=== PATIENT | female | born 1975 | race Caucasian/White ===

== ENCOUNTER 2024-10-26 15:43 | Inpatient (IN) | payer MEDICAID, OTHER ==
[~2024-10-26] VITALS: Ht 167.6 cm; Wt 72.9 kg
--- NOTE | 2024-10-26 15:53 | ECG ---
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
--- NOTE | 2024-10-26 15:54 | ED.PDOC ---
GI ASSESSMENT HPI Comments 49Y F with PMHx liver cirrhosis and esophageal varices presents to ED via EMS for chief complaint hematemesis that began this morning. Pt states she has been feeling unwell for 3 days and began to experience hematemesis today. Per pt, she has been eating lots of candy and thought her emesis this morning was chocolate. Pt says she may have had a fever as well. Pt presents to ED hypotensive with BP 75/49. HR is 85. Chief Complaint: Nausea/Vomiting Time Seen by MD: 15:45 Reviewed Notes: Nurses Notes, Transit Planning Director Notes, Medications, Allergies Allergies: Coded Allergies: NO KNOWN ALLERGIES (Unverified , 10/26/24) Information Source: Patient, Emergency Med Personnel Mode of Arrival: EMS Brought in by: EMS Timing: Days Duration: Intermittent Prehospital treatment: None Quality: None Vomitus: Bloody Stool: Normal Severity: Moderate Recent: None Recent Hx of: Varicies, Liver Disease Pain Location: Epigastric, None Modifying Factors: Nothing Associated sign and symptoms: Hematemesis Past Medical History PAST MEDICAL HISTORY: Liver (cirrhosis) Past Medical History (Other): Esophageal varices Surgical History: Denies all surgeries IMPROVEMENT DIRECTOR History: No Pertinent IMPROVEMENT DIRECTOR History Family History Family History: Unknown Social History Smoker: Non-Smoker Alcohol: Denies ETOH Use Drugs: Denies Drug Use Lives In: Home Constitutional: reports: fever, weakness; denies: chills, diaphoresis, fatigue, malaise, sweats, others EENTM: denies: blurred vision, double vision, ear bleeding, ear discharge, ear drainage, ear pain, ear ringing, eye pain, eye redness, hearing loss, mouth pain, mouth swelling, nasal discharge, nose bleeding, nose congestion, nose pain, photophobia, tearing, throat pain, throat swelling, voice changes, others Respiratory: denies: cough, hemoptysis, orthopnea, SOB at rest, shortness of breath, SOB with excertion, stridor, wheezing, others Cardiovascular: denies: chest pain, dizzy spells, diaphoresis, Dyspnea on exertion, edema, irregular heart beat, left arm pain, lightheadedness, palpitations, PND, syncope, others Gastrointestinal: reports: hematemesis; denies: abdomen distended, abdominal pain, blood streaked bowels, constipated, diarrhea, dysphagia, difficulty swallowing, melena, nausea, poor appetite, poor fluid intake, rectal bleeding, rectal pain, vomiting, others Genitourinary: denies: abnormal vagina bleeding, burning, dyspareunia, dysuria, flank pain, frequency, hematuria, incontinence, pain, , vagina discharge, urgency, others Neurological: denies: dizziness, fainting, headache, left sided numbness, left sided weakness, numbness, paresthesia, pre-existing deficit, right sided numbness, right sided weakness, seizure, speech problems, tingling, tremors, weakness, others Musculoskeletal: denies: back pain, gout, joint pain, joint swelling, muscle pain, muscle stiffness, neck pain, others Integumetry: denies: bruises, change in color, change in hair/nails, dryness, laceration, lesions, lumps, rash, wounds, others Allergic/Immunocompromised: denies: Difficulty Healing, Frequent Infections, Hives, Itching, others Hematologic/Lymphatic: denies: anemia, blood clots, easy bleeding, easy bruising, swollen glands, others Endocrine: denies: excessive hunger, excessive sweating, excessive thirst, excessive urination, flushing, intolerance to cold, intolerance to heat, une xplained weight gain, unexplained weight loss, others Psychiatric: denies: anxiety, bipolar disorder, depression, hopeless, panic disorder, schizophrenia, sleepless, suicidal, others All Other Systems: Reviewed and Negative Physical Exam General Appearance: Moderate Distress (Patient appears to be in moderate distress due to her hematemesis concerns. Patient appears to be in poor overall health.), Normal HEENT: Normal ENT Inspection, Pharynx Normal, TMs Normal Neck: Full Range of Motion, Non-Tender, Normal, Normal Inspection Respiratory: Chest Non-Tender, Lungs Clear, No Accessory Muscle Use, No Respiratory Distress, Normal Breath Sounds Cardiovascular: No Edema, No JVD, No Murmur, No Gallop, Normal Peripheral Pulses, Regular Rate/Rhythm Breast Exam: Deferred Gastrointestinal: Soft, Tenderness (Mild diffuse epigastric and right upper quadrant tenderness to palpation.) Genitalia: Deferred Pelvic: Deferred Rectal: Deferred Extremities: No calf tenderness, Normal capillary refill, Non-tender, No pedal edema Musculoskeletal : Apperance: Normal Neurologic: Alert, No Motor Deficits, Normal Affect, Normal Mood, No Sensory Deficits Cerebellar Function: Normal Reflexes: Normal Skin: Dry, Normal Color, Warm Lymphatic: No Adenopathy Was a procedure done? Was a procedure done?: No GI differential Dx Differential Diagnosis: Esophageal rupture, Esophagitis, Electrolyte Imbalance, Esophageal Varicies, Other (GI bleed, pancreatitis, electrolyte abnormality, sepsis) X-Ray, Labs, Meds, VS Vital Signs Date Time Temp Pulse Resp B/P (MAP) Pulse Ox O2 Delivery O2 Flow Rate FiO2 10/26/24 17:40 95/54 (68) 10/26/24 17:00 85 15 91/50 (64) 100 10/26/24 16:45 76 15 76/39 (51) 100 10/26/24 16:41 73 15 99 Nasal Cannula* 2 28 10/26/24 16:30 87 15 81/43 (56) 100 10/26/24 16:17 97.5 83 15 78/42 (54) 100 97.5 10/26/24 16:00 82 10/26/24 15:51 89 10/26/24 15:45 98.0 85 20 75/49 (58) 100 Lab Test 10/26/24 18:34 10/26/24 16:11 Range/Units Lactic Acid Level 2.4 *H 4.4 *H 0.4-2.0 mmol/L Troponin I High Sensitivity 13 < 3 L </=34 ng/L White Blood Count 10.5 4.4-10.8 10^3/uL Red Blood Count 3.13 L 4.0-5.20 10^6/uL Hemoglobin 8.7 L 12.2-16.2 g/dL Hematocrit 26.9 L 36.0-46.0 % Mean Corpuscular Volume 85.9 80.0-100.0 fL Mean Corpuscular Hemoglobin 27.9 L 28.0-32.0 pg Mean Corpuscular Hemoglobin Concent 32.4 32.0-36.0 g/dL Red Cell Distribution Width 17.0 H 11.8-14.3 % Platelet Count 89 L 140-450 10^3/uL Mean Platelet Volume 7.2 6.9-10.8 fL Neutrophils (%) (Auto) 61.9 37.0-80.0 % Lymphocytes (%) (Auto) 31.1 10.0-50.0 % Monocytes (%) (Auto) 5.5 0.0-12.0 % Eosinophils (%) (Auto) 1.1 0.0-7.0 % Basophils (%) (Auto) 0.4 0.0-2.0 % Neutrophils # (Auto) 6.5 1.6-8.6 10 ^3/uL Lymphocytes # (Auto) 3.3 0.4-5.4 10 ^3/uL Monocytes # (Auto) 0.6 0-1.3 10 ^3/uL Eosinophils # (Auto) 0.1 0-0.8 10 ^3/uL Basophils # (Auto) 0 0-0.2 10 ^3/uL Nucleated Red Blood Cells 0.1 % Prothrombin Time 13.9 H 9.3-11.8 sec Prothrombin Time INR 1.34 H 0.9-1.15 Activated Partial Thromboplast Time 26.3 24.5-34.5 SEC D-Dimer, Quantitative 0.22 0.0-0.49 mg/L FEU Sodium Level 145 136-145 mmol/L Potassium Level 3.2 L 3.5-5.1 mmol/L Chloride Level 113 H 98-107 mmol/L Carbon Dioxide Level 18 L 20-31 mmol/L Anion Gap 14 5-15 Blood Urea Nitrogen 27 H 9-23 mg/dL Creatinine 0.83 0.550-1.02 mg/dL Glomerular Filtration Rate Calc 87 >90 mL/min BUN/Creatinine Ratio 32.5 H 10.0-20.0 Serum Glucose 139 H 74-106 mg/dL Calcium Level 9.2 8.7-10.4 mg/dL Total Bilirubin 1.7 H 0.2-1.0 mg/dL Aspartate Amino Transferase (AST) 22 13-40 U/L Alanine Aminotransferase (ALT) 16 7-40 U/L Alkaline Phosphatase 68 46-116 U/L B-Type Natriuretic Peptide 2.59 0-100 pg/mL Total Protein 5.3 L 5.7-8.2 g/dL Albumin 3.2 3.2-4.8 g/dL Current Medications Medications (Trade) Dose Ordered Sig/Chandan Route Start Time Stop Time Status Last Admin Sodium Chloride 1,000 ml @ 1,000 mls/hr Q1H ONCE IV 10/26/24 16:00 10/26/24 16:59 DC 10/26/24 16:00 Albumin Human 100 ml @ 100 mls/hr ONCE ONCE IV 10/26/24 16:30 10/26/24 17:29 DC 10/26/24 16:38 Ondansetron HCl (Zofran) 4 mg ONCE ONCE IV 10/26/24 16:30 10/26/24 16:31 DC 10/26/24 16:38 [place] [id number] Ph: [phone] DIAGNOSTIC IMAGING Diagnostic Imaging Report : [id number] Signed PATIENT: SHIRLENE LOBATOCCT: [id number] UNIT: [id number] : 1975 LOC: ER ROOM / BED: / AGE / SEX: 49 / F ADM STATUS: REG ER SERVICE 26 ORDERING PHYSICIAN: ALEYDA GARCIA PAC PROCEDURE(s): CAPIV - CT CHEST/AB/PL W CON- IV ONLY REASON: HEMATEMESIS; HX ESOPHAGEAL VARICES ORDER NUMBER(s): [id number], ACCESSION NUMBER(s): [id number] Exam: CT CT CHEST/AB/PL W CON- IV ONLY History: HEMATEMESIS; HX ESOPHAGEAL VARICES Comparison Study: None available at time of dictation. Contrast: Type of contrast: Omnipaque 300 Contrast injected: 100 mL Contrast wasted: 0 TECHNIQUE: A digital follow up clerk image was obtained. During the uneventful, intravenous administration of contrast material, multislice data acquisition was obtained through the abdomen and pelvis. The data set was subsequently reconstructed into axial images. Images were reviewed on a work station using a combination of axial and multiplanar using a variety of window levels and settings. Radiation Dose Information: CT Dose: CTDI volume is 12.23 mGy. Dose-length product is 825.2 mGy*cm FINDINGS: Lung Bases: No acute or significant lung base finding. Normal heart size. No pleural or pericardial effusion. Liver: The liver is normal in size. No focal lesions. Normal hepatic vascular enhancement. Nodular appearance to the surface of the liver correlate for cirrhotic liver disease. Periportal varices Gallbladder and Biliary Tree: Gallstones Spleen: Enlarged and measures 15 cm. Perisplenic varices 17 18 mm round hypodense structure in the splenic hilum. Tissue density 29 Hounsfield units. Pancreas: The pancreas is normal in appearance without focal lesions or abnormal enhancement. Adrenal Glands: Unremarkable Kidneys: Kidneys demonstrate normal symmetric enhancement without focal lesions, calculi or hydronephrosis. Bladder: Unremarkable Bowel: The stomach is grossly normal in appearance. Perigastric varices. Small bowel and colon are normal in caliber and distribution. The appendix is not visualized; however, no secondary findings of acute appendicitis identified. Ascites: Absent Lymphadenopathy: No mesenteric, retroperitoneal or periportal lymphadenopathy. Abdominal Wall and Mesentery: Unremarkable. Vasculature: The visualized abdominal aorta is normal in size and caliber. A bdominal and pelvic vessels demonstrate normal enhancement. Pelvic Organs: Unremarkable Musculoskeletal: No aggressive focal bony lesions, acute fractures or dislocation. Soft tissues: Unremarkable. IMPRESSION: 1. Perisplenic, periportal, perigastric, and periesophageal varices. 2. No findings of pulmonary artery hypertension. 3. No pulmonary masses or nodules. 4. No free air or free fluid in the abdomen or pelvis. 5. Cholelithiasis and thickened gallbladder wall. 6. No findings of bowel obstruction. All CT scans at this medical facility are performed using dose modulation techniques as appropriate to a performed exam including the following: Automated exposure control was utilized; adjustment of the MA and/or KV according to patient size; and use of iterative reconstruction technique. ATED BY: DEVIN ALEJANDRE Jr., DO DICTATED DATE/TIME: 10/26/241953 SIGNED BY: DEVIN ALEJANDRE Jr., SIGNED DATE/TIME: 10/26/241953 CC: X-Ray, Labs, Meds, VS Comment All studies performed with the ED were evaluated by me personally. Imaging studies confirmed esophageal varices as well as cholelithiasis and gallbladder wall thickening. Laboratories confirmed significant anemia, hypokalemia and elevated lactic acid. Additional concerns related to the patient's blood pressure at arrival. We attempted to improve blood pressure through saline infusions, but had little success. Patient eventually required albumin as well as central line placement to stave off any deterioration. Patient will be admitted for a cardiac evaluation to address her blood pressure issues as well as GI to address her variceal and gallbladder concerns. Time of 1ST Reevaluation: 20:35 Reevaluation 1ST: Improved Consultation: PCP Patient Education/Counseling: Diagnosis, Treatment Family Education/Counseling: Diagnosis, Treatment, No Family Present Additional Information - I reviewed the following notes from patient's past medical encounters: - The following tests were ordered, and results were reviewed by me: (Labs, X- Ray, EKG): CT chest abdomen and pelvis without contrast, COVID test, troponin x3, EKG x1, D- Dimer, UA, BNP, CBC, CMP, PTPTT - Additional information was gathered from interviewing the following independent Historian: (Family, Other Providers, EMT): none - I reviewed and agreed with the following test results read by other provider: (X-ray, CT, US): radiologist - I discussed treatments and results with medical personnel and: (consultants, family): none Departure 1 Departure Time of Disposition: 20:36 Impression: Primary Impression: Esophageal varices Additional Impressions: Liver cirrhosis Cholelithiasis Anemia Hypokalemia Elevated lactic acid level Disposition: ADMITTED INPATIENT Condition: Fair Discharged With: Self, Spouse Critical Care Note Critical Care Time?: No Stability Stability form required: No Heart Score Heart Score: Heart Score Response (Comments) Value History Slightly Suspicious 0 EKG Normal 0 Age 45-64 1 Risk Factors 1 or 2 risk factors 1 Troponin Normal limit 0 Total 2 I personally scribed for ALEYDA GARCIA PAC ([email or web address]) on 10/26/24 at 15:54. Electronically submitted by Hannah Bell ([email or web address]). I personally scribed for ALEYDA GARCIA B PAC ([email or web address]) on 10/26/24 at 20:09. Electronically submitted by Aditya Mayen ([email or web address]). I personally scribed for JOSEALEYDA B PAC ([email or web address]) on 10/26/24 at 20:12. Electronically submitted by Aditya Mayen ([email or web address]). ALEYDA GARCIA B PAC Oct 26, 2024 15:54
[2024-10-26] MEDS: SODIUM CHLORIDE 0.9% 1,000 ML IV ONE (16:00)
[2024-10-26] MEDS ORDERED: ONDANSETRON HCL 4 MG/2 ML VIAL IM ONE (16:00)
[2024-10-26 16:29] LABS: Basophils # (auto) 0 10 ^3/uL (0-0.2); Basophils % (auto) 0.4 % (0.0-2.0); Eosinophils # (auto) 0.1 10 ^3/uL (0-0.8); Eosinophils % (auto) 1.1 % (0.0-7.0); Hematocrit 26.9 % (36.0-46.0); Hemoglobin 8.7 g/dL (12.2-16.2); Lymphocytes # (auto) 3.3 10 ^3/uL (0.4-5.4); Lymphocytes % (auto) 31.1 % (10.0-50.0); Mean Corpuscular Hemoglobin 27.9 pg (28.0-32.0); Mean Corpuscular Hgb Conc. 32.4 g/dL (32.0-36.0); Mean Corpuscular Volume 85.9 fL (80.0-100.0); Monocytes # (auto) 0.6 10 ^3/uL (0-1.3); Monocytes % (auto) 5.5 % (0.0-12.0); Neutrophils # (auto) 6.5 10 ^3/uL (1.6-8.6); Neutrophils % (auto) 61.9 % (37.0-80.0); Nucleated Red Blood Cells % 0.1 %; Platelet Count (auto) 89 10^3/uL (140-450); Red Blood Cells 3.13 10^6/uL (4.0-5.20); White Blood Cell 10.5 10^3/uL (4.4-10.8)
[2024-10-26] MEDS: ALBUMIN 25% 100 ML IV ONE (16:38)
[2024-10-26] MEDS: ONDANSETRON HCL 4 MG/2 ML VIAL IV ONE (16:38)
[2024-10-26 16:41] VITALS: PULSE 73; RESP 15; O2SAT 99
[2024-10-26 16:43] LABS: Alanine Aminotransferase 16 U/L (7-40); Albumin 3.2 g/dL (3.2-4.8); Alkaline Phosphatase 68 U/L (46-116); Aspartate Aminotransferase 22 U/L (13-40); BUN/Creatinine Ratio 32.5 (10.0-20.0); Calcium 9.2 mg/dL (8.7-10.4)
[2024-10-26 16:48] LABS: Bilirubin, Total 1.7 mg/dL (0.2-1.0); Blood Urea Nitrogen 27 mg/dL (9-23); Chloride 113 mmol/L (98-107); Glucose 139 mg/dL (74-106); Potassium 3.2 mmol/L (3.5-5.1); Sodium 145 mmol/L (136-145); Total Protein 5.3 g/dL (5.7-8.2)
[2024-10-26 17:00] LABS: Lactic Acid w/Reflex 4.4 mmol/L (0.4-2.0)
[2024-10-26 17:20] LABS: INR 1.34 (0.9-1.15); Partial Thromboplastin Time 26.3 SEC (24.5-34.5); Prothrombin Time 13.9 sec (9.3-11.8)
[2024-10-26 17:26] LABS: Anion Gap 14 (5-15)
[2024-10-26 17:27] LABS: Carbon Dioxide 18 mmol/L (20-31)
[2024-10-26] MEDS: IOHEXOL 300 MG/ML 100ML BOTTLE IJ ONE (19:49)
--- NOTE | 2024-10-26 19:57 | DVH ---
Exam: CT CT CHEST/AB/PL W CON- IV ONLY History: HEMATEMESIS; HX ESOPHAGEAL VARICES Comparison Study: None available at time of dictation. Contrast: Type of contrast: Omnipaque 300 Contrast injected: 100 mL Contrast wasted: 0 TECHNIQUE: A digital fresh work inspector image was obtained. During the uneventful, intravenous administration of c ontrast material, multislice data acquisition was obtained through the abdomen and pelvis. The data s et was subsequently reconstructed into axial images. Images were reviewed on a work station using a c ombination of axial and multiplanar using a variety of window levels and settings. Radiation Dose Information: CT Dose: CTDI volume is 12.23 mGy. Dose-length product is 825.2 mGy*cm FINDINGS: Lung Bases: No acute or significant lung base finding. Normal heart size. No pleural or pericardial effusion. Liver: The liver is normal in size. No focal lesions. Normal hepatic vascular enhancement. Nodular a ppearance to the surface of the liver correlate for cirrhotic liver disease. Periportal varices Gallbladder and Biliary Tree: Gallstones Spleen: Enlarged and measures 15 cm. Perisplenic varices 17 18 mm round hypodense structure in the sp lenic hilum. Tissue density 29 Hounsfield units. Pancreas: The pancreas is normal in appearance without focal lesions or abnormal enhancement. Adrenal Glands: Unremarkable Kidneys: Kidneys demonstrate normal symmetric enhancement without focal lesions, calculi or hydroneph rosis. Bladder: Unremarkable Bowel: The stomach is grossly normal in appearance. Perigastric varices. Small bowel and colon are no rmal in caliber and distribution. The appendix is not visualized; however, no secondary findings of acute appendicitis identified. Ascites: Absent Lymphadenopathy: No mesenteric, retroperitoneal or periportal lymphadenopathy. Abdominal Wall and Mesentery: Unremarkable. Vasculature: The visualized abdominal aorta is normal in size and caliber. Abdominal and pelvic vess els demonstrate normal enhancement. Pelvic Organs: Unremarkable Musculoskeletal: No aggressive focal bony lesions, acute fractures or dislocation. Soft tissues: Unremarkable. IMPRESSION: 1. Perisplenic, periportal, perigastric, and periesophageal varices. 2. No findings of pulmonary artery hypertension. 3. No pulmonary masses or nodules. 4. No free air or free fluid in the abdomen or pelvis. 5. Cholelithiasis and thickened gallbladder wall. 6. No findings of bowel obstruction. All CT scans at this medical facility are performed using dose modulation techniques as appropriate t o a performed exam including the following: Automated exposure control was utilized; adjustment of th e MA and/or KV according to patient size; and use of iterative reconstruction technique.
[2024-10-26 20:00] VITALS: PULSE 81; RESP 13; O2SAT 100
[2024-10-26] MEDS ORDERED: POTASSIUM CHL 20MEQ/100ML 100 ML IV SCH ×2 (20:45→22:15)
[2024-10-26] MEDS: POTASSIUM EFFERVESENT TAB 25 MEQ PO ONE (20:49)
[2024-10-26 21:39] LABS: Urine Bacteria None Seen /hpf (None Seen)
[2024-10-26 22:10] LABS: Urine Blood Negative /uL (Negative); Urine Clarity Clear (Clear); Urine Color Yellow (Yellow); Urine Mucus FEW (None Seen); Urine Protein, UAD TRACE (Negative); Urine Squamous Epithelial Cell MOD /hpf (<5); Urine Urobilinogen 3 mg/dL (Negative); Urine WBC 6 /hpf (0 - 5)
--- NOTE | 2024-10-26 22:11 | DVHHPRES ---
History of Present Illness Resident Creating Document: LEONELA HERNANDEZ RESIDENT History of Present Illness Patient is a 49-year-old female with past medical history of liver cirrhosis due to alcohol abuse, GI bleed, esophageal varices, subdural hematoma, hepatic encephalopathy, seizure who came to the hospital with a chief complaint of acute onset of bloody vomiting. As per patient she started having bloody vomiting yesterday evening on 10/25, had multiple episodes of bloody vomiting that prompted visit to the hospital. As per patient she has been diagnosed with liver cirrhosis due to alcohol abuse and esophageal varices, she underwent endoscopy one year ago where they were not able to do banding procedure given a small size of esophageal varices. Patient denied taking any medication including Protonix, spironolactone, beta blockers or any other prophylactic medication. Patient denied any other symptoms including abdominal pain, chest pain, shortness of breath, dizziness, generalized weakness, motor or sensory deficits. Home medication: Ferrous sulfate 325 mg, Sertraline Past Medical History Liver cirrhosis due to alcohol abuse, GI bleed, esophageal varices, subdural hematoma, hepatic encephalopathy, seizure Past Surgical History: None Family History: None Past Social History Past history of alcohol abuse. Review of Systems Review of Systems Patient complaining of bloody vomiting. Denied any other symptoms. Eyes: No Pain, No Vision change, No Conjunctivae inflammation, No Eyelid inflammation, No Other, No Redness ENT: No Ear pain, No Ear discharge, No Nose pain, No Nose discharge, No Nose congestion, No Mouth pain, No Mouth swelling, No Throat pain, No Throat swelling, No Other Cardiovascular: No Chest Pain, No Palpitations, No Orthopnea, No Paroxysmal Noc. Dyspnea, No Edema, No Lt Headedness, No Other Respiratory: No Cough, No Dry, No Shortness of breath, No SOB with excertion, No Wheezing, No Hemoptysis, No Pleuritic Pain, No Sputum, No Other Gastrointestinal: Nausea, Vomiting, No Abdominal Pain, No Diarrhea, No Constipation, No Melena, No Hematochezia, No Other Genitourinary: No Dysuria, No Frequency, No Incontinence, No Hematuria, No Retention, No Other Musculoskeletal: No other, No neck pain, No shoulder pain, No arm pain, No back pain, No hand pain, No leg pain, No foot pain Skin: No Rash, No Lesions, No Jaundice, No Bruising, No Other Allergies: Coded Allergies: NO KNOWN ALLERGIES (Unverified , 10/26/24) Medications Current Medications Medications Dose Ordered Sig/Chandan Route Start Time Stop Time Status Last Admin Dose Admin Potassium Chloride 100 ml @ 50 mls/hr Q2H IV 10/26/24 20:45 10/27/24 00:44 Exam Vital Signs Vital Signs Date Time Temp Pulse Resp B/P (MAP) Pulse Ox O2 Delivery O2 Flow Rate FiO2 10/26/24 17:40 95/54 (68) 10/26/24 17:00 85 15 100 10/26/24 16:41 Nasal Cannula* 2 28 10/26/24 16:17 97.5 97.5 Exam General Appearance: Cooperative. Well developed. Well nourished. NAD Head Exam: Normal inspection, yellowish discoloration of sclerae Neck Exam: Normal inspection. Non-tender. Normal alignment Pulmonary/Respiratory: Chest non-tender. Clear bilateral breath sounds Cardiovascular/Chest: Regular rate and rhythm. No murmurs. No JVD. Peripheral Pulses: 2+ Radial (R). 2+ Radial (L). 2+ Pedal (R). 2+ Pedal (L) Abdominal Exam: Normal bowel sounds. Soft. Nontender. No hepatospenomegaly. No masses Ankle Exam: Negative ankle edema Lower extremities: Negative lower extremity edema Neuro/Mental Status: A&O x4. Coherent Thoughts/Psych: Normal thought pattern. Appropriate mood and affect. Good judgement and insight Appearance: In no acute distress Skin Exam: Normal inspection. Normal color. Warm. Dry Labs/Xrays Labs Test 10/26/24 21:36 10/26/24 20:59 10/26/24 18:34 10/26/24 16:11 Range/Units Troponin I High Sensitivity 20 </=34 ng/L Lactic Acid Level 2.4 *H 0.4-2.0 mmol/L White Blood Count 10.5 4.4-10.8 10^3/uL Red Blood Count 3.13 L 4.0-5.20 10^6/uL Hemoglobin 8.7 L 12.2-16.2 g/dL Hematocrit 26.9 L 36.0-46.0 % Mean Corpuscular Volume 85.9 80.0-100.0 fL Mean Corpuscular Hemoglobin 27.9 L 28.0-32.0 pg Mean Corpuscular Hemoglobin Concent 32.4 32.0-36.0 g/dL Red Cell Distribution Width 17.0 H 11.8-14.3 % Platelet Count 89 L 140-450 10^3/uL Mean Platelet Volume 7.2 6.9-10.8 fL Neutrophils (%) (Auto) 61.9 37.0-80.0 % Lymphocytes (%) (Auto) 31.1 10.0-50.0 % Monocytes (%) (Auto) 5.5 0.0-12.0 % Eosinophils (%) (Auto) 1.1 0.0-7.0 % Basophils (%) (Auto) 0.4 0.0-2.0 % Neutrophils # (Auto) 6.5 1.6-8.6 10 ^3/uL Lymphocytes # (Auto) 3.3 0.4-5.4 10 ^3/uL Monocytes # (Auto) 0.6 0-1.3 10 ^3/uL Eosinophils # (Auto) 0.1 0-0.8 10 ^3/uL Basophils # (Auto) 0 0-0.2 10 ^3/uL Nucleated Red Blood Cells 0.1 % Prothrombin Time 13.9 H 9.3-11.8 sec Prothrombin Time INR 1.34 H 0.9-1.15 Activated Partial Thromboplast Time 26.3 24.5-34.5 SEC D-Dimer, Quantitative 0.22 0.0-0.49 mg/L FEU Sodium Level 145 136-145 mmol/L Potassium Level 3.2 L 3.5-5.1 mmol/L Chloride Level 113 H 98-107 mmol/L Carbon Dioxide Level 18 L 20-31 mmol/L Anion Gap 14 5-15 Blood Urea Nitrogen 27 H 9-23 mg/dL Creatinine 0.83 0.550-1.02 mg/dL Glomerular Filtration Rate Calc 87 >90 mL/min BUN/Creatinine Ratio 32.5 H 10.0-20.0 Serum Glucose 139 H 74-106 mg/dL Calcium Level 9.2 8.7-10.4 mg/dL Total Bilirubin 1.7 H 0.2-1.0 mg/dL Aspartate Amino Transferase (AST) 22 13-40 U/L Alanine Aminotransferase (ALT) 16 7-40 U/L Alkaline Phosphatase 68 46-116 U/L B-Type Natriuretic Peptide 2.59 0-100 pg/mL Total Protein 5.3 L 5.7-8.2 g/dL Albumin 3.2 3.2-4.8 g/dL Assessment/Plan Assessment/Plan Upper GI bleed in setting of esophageal varices and liver cirrhosis History of esophageal varices Decompensated liver cirrhosis Hemorrhagic shock ? Spontaneous bacterial peritonitis Severe hemorrhagic anemia Cholelithiasis, no cholecystitis Hypokalemia Lactic acidosis History of alcohol abuse Moderate protein malnutrition Plan -continue Protonix drip given active upper GI bleed -bolus octreotide, then continue octreotide drip as per protocol -GI consultation for upper GI bleed possible requiring endoscopic -1 unit of PRBC given for hemoglobin less than 7, continue to monitor hemoglobin and hematocrit -continue IV fluid at low rate at 75 mL/hour, continue to monitor volume status. -IV ceftriaxone 2 g , given upper GI bleed, spontaneous bacterial peritonitis can not be ruled out. -AFP: Screening for liver cancer. -elevated lactic acidosis, repeat lactic acidosis in a.m.. -hold prophylactic beta yola and spironolactone given soft blood pressure. -DVT prophylaxis not given low hemoglobin Code status discussed greater than 22 minutes. Full code Given active GI bleed, patient continued on octreotide drip and Protonix, given ondansetron as needed for nausea and vomiting, GI consultation has been done. Given acuity of condition, we are expecting patient will require more than two days of stay and patient will be admitted to telemetry for further care. Plan discussed with Dr Davis Plan discussed with: Patient, Spouse (RN) My Orders Orders - LEONELA HERNANDEZ RESIDENT Procedure Category Date Status Time Complete Blood Count LAB 10/26/24 Logged 22:01 Pantoprazole PHA 10/26/24 Logged 40mg/50ml Ns Ae 22:15 Octreotide Acetate PHA 10/26/24 Logged (Sandostatin) 22:15 Sodium Chl 0.9% PHA 10/26/24 Logged (So... W/Octreotide 22:15 Ceftriaxone 2gm/50ml PHA 10/26/24 Logged D5w (Rocephin 2gm/5 22:15 *Cons[address] Dr[address] Gamble CONS 10/26/24 Transmitted [facility] 22:02 Abdomen Limited US 10/26/24 Logged 22:02 Afp Serum Tumor Marker LAB 10/26/24 Transmitted 22:02 Admit ADMIT 10/26/24 Transmitted 22:02 Potassium Chl Antwon PHA 10/26/24 Transmitted KCL 22:15 Date of Service: Oct 26, 2024 Billing Provider: SUSANNA DAVIS MD Common Visit Codes: [id number] INP/OBS CARE (HIGH) LEONELA HERNANDEZ RESIDENT Oct 26, 2024 22:11 SUSANNA DAVIS MD Oct 27, 2024 11:51
[2024-10-26 22:12] LABS: Urine Specific Gravity > 1.035 (1.001-1.035)
[2024-10-26 22:25] LABS: Basophils # (auto) 0 10 ^3/uL (0-0.2); Basophils % (auto) 0.2 % (0.0-2.0); Eosinophils # (auto) 0 10 ^3/uL (0-0.8); Mean Corpuscular Volume 84.8 fL (80.0-100.0); Monocytes # (auto) 0.3 10 ^3/uL (0-1.3); White Blood Cell 6.6 10^3/uL (4.4-10.8)
[2024-10-26 22:27] LABS: Eosinophils % (auto) 0.3 % (0.0-7.0); Hematocrit 20.4 % (36.0-46.0); Lymphocytes % (auto) 29.7 % (10.0-50.0); Mean Corpuscular Hemoglobin 28.4 pg (28.0-32.0); Mean Corpuscular Hgb Conc. 33.5 g/dL (32.0-36.0); Monocytes % (auto) 4.4 % (0.0-12.0); Neutrophils # (auto) 4.3 10 ^3/uL (1.6-8.6); Neutrophils % (auto) 65.4 % (37.0-80.0); Nucleated Red Blood Cells % 0.1 %
[2024-10-26 22:37] LABS: Hemoglobin 6.8 g/dL (12.2-16.2); Platelet Count (auto) 57 10^3/uL (140-450)
[2024-10-26] MEDS: OCTREOTIDE ACETATE 500 MCG in SODIUM CHL 0.9% 99 ML IV SCH (23:18)
[2024-10-26] MEDS: PANTOPRAZOLE 40mg/50ML NS AE 50 ML IV SCH (23:18)
[2024-10-26] MEDS: cefTRIAXone 2GM/50ML D5W 50 ML IV ONE (23:18)
[2024-10-26] MEDS: OCTREOTIDE ACETATE 100 MCG/ML VL ONE (23:19)
[2024-10-26] MEDS: OCTREOTIDE ACETATE 100 MCG in SODIUM CHL 0.9% 50 ML IV ONE (23:46)
[2024-10-27] VITALS (17 sets, daily range): BP systolic 85–97; BP diastolic 42–64; PULSE 62–92; RESP 9–18; TEMP 97.4–99; O2SAT 94–99
[2024-10-27] MEDS: ONDANSETRON HCL 4 MG/2 ML VIAL IV ONE (00:20)
[2024-10-27] MEDS: ONDANSETRON HCL 4 MG/2 ML VIAL ONE (00:21)
--- NOTE | 2024-10-27 00:26 | DVH ---
INDICATION: acute cholecystitis Acsitis TECHNIQUE: Multiple real-time sonographic images of the abdomen were obtained. COMPARISON: None FINDINGS: Hepatic contours irregular in the parenchyma shows increased echogenicity.. The liver measu res 13.9 cm cm. No intrahepatic biliary ductal dilatation is noted. The gallbladder wall measures 0.43 cm and is unremarkable. Multiple mobile stones are noted in the gallbladder. A negative ultrasound gonzales's sign is elicited. Minimal gallbladder wall thickening.. The common duct measures 0.38 cm and is unremarkable. No pericholecystic fluid is noted. The right kidney measures 9.7 cm. No hydronephrosis. The pancreas is not well visualized due to obscuration from bowel gas. The visualized portions of the IVC and aorta are grossly unremarkable. IMPRESSION: 1. Mobile gallstones in the gallbladder. Negative ultrasound Gonzales's sign is elicited. 2. 13.9 cm liver with increased echogenicity to the hepatic parenchyma and irregular contour to the m argins. HS:Y
[2024-10-27] MEDS ORDERED: ONDANSETRON HCL 4 MG/2 ML VIAL IV PRN (04:30)
[2024-10-27] MEDS ORDERED: SERT-289 PO (05:02)
[2024-10-27] MEDS: OCTREOTIDE ACETATE 100 MCG/ML VL ONE (05:58)
[2024-10-27] MEDS: SODIUM CHLORIDE 0.9% 1,000 ML IV SCH (05:59)
[2024-10-27] MEDS ORDERED: DEXTROSE (50%) 50ML SYRG IV PRN (08:00)
[2024-10-27 08:09] LABS: Rapid Influenza A Negative (Negative); Rapid Influenza B Negative (Negative)
[2024-10-27 08:10] LABS: COVID19 ANTIGEN SOFIA FIA NEGATIVE (NEGATIVE)
[2024-10-27 09:05] LABS: Basophils # (auto) 0 10 ^3/uL (0-0.2); Eosinophils # (auto) 0.1 10 ^3/uL (0-0.8); Monocytes # (auto) 0.3 10 ^3/uL (0-1.3); Nucleated Red Blood Cells % 0.1 %; Platelet Count (auto) 49 10^3/uL (140-450); White Blood Cell 4.2 10^3/uL (4.4-10.8)
[2024-10-27 09:07] LABS: Basophils % (auto) 0.5 % (0.0-2.0); Eosinophils % (auto) 1.4 % (0.0-7.0); Hematocrit 21.1 % (36.0-46.0); Lymphocytes % (auto) 46.9 % (10.0-50.0); Mean Corpuscular Volume 87.7 fL (80.0-100.0); Neutrophils # (auto) 1.9 10 ^3/uL (1.6-8.6); Neutrophils % (auto) 44.2 % (37.0-80.0); Red Cell Distribution Width 16.5 % (11.8-14.3)
[2024-10-27] MEDS: cefTRIAXone 1GM/50ML D5W 50 ML IV SCH (10:43)
[2024-10-27 11:19] LABS: Anion Gap 11 (5-15); Potassium 4.3 mmol/L (3.5-5.1)
[2024-10-27 11:20] LABS: Platelet Estimate Decreased
[2024-10-27 11:24] LABS: Carbon Dioxide 20 mmol/L (20-31); Chloride 118 mmol/L (98-107); Sodium 149 mmol/L (136-145)
[2024-10-27 11:25] LABS: BUN/Creatinine Ratio 29.2 (10.0-20.0); Glucose 98 mg/dL (74-106); Magnesium 1.9 mg/dL (1.6-2.6)
--- NOTE | 2024-10-27 11:35 | DVHINCON2 ---
Date of service: Oct 27, [address] Stewart Reason for Consultation UGI bleed History of Present Illness 49Y F with PMHx liver cirrhosis and esophageal varices presents to ED via EMS for chief complaint hematemesis that began this morning. Pt states she has been feeling unwell for 3 days and began to experience hematemesis today. Per pt, she has been eating lots of candy and thought her emesis this morning was chocolate. Pt says she may have had a fever as well. Pt presents to ED hypotensive with BP 75/49. HR is 85. As per patient she has been diagnosed with liver cirrhosis due to alcohol abuse and esophageal varices, she underwent endoscopy one year ago; no banding procedure given a small size of esophageal varices. Patient denied taking any medication including Protonix, spironolactone, beta blockers or any other prophylactic medication. Patient denied any other symptoms including abdominal pain, chest pain, shortness of breath, dizziness, generalized weakness, motor or sensory deficits. Past Medical History Liver cirrhosis Alcohol abuse Subdural hematoma Hepatic encephalopathy Seizures Past Surgical History Previous EGD Family History: FH: lung cancer Allergies: Coded Allergies: NO KNOWN ALLERGIES (Unverified , 10/26/24) Home Meds Reported Medications Sertraline HCl (Sertraline HCl) 50 Mg Tab, 50 MG PO DAILY, TAB 10/27/24 Current Medications Current Medications Medications (Trade) Dose Ordered Sig/Chandan Route PRN Reason Start Time Stop Time Status Last Admin Potassium Chloride 100 ml @ 50 mls/hr Q2H IV 10/26/24 20:45 10/26/24 22:27 DC Pantoprazole Sodium 50 ml @ 10 mls/hr Q5H IV 10/26/24 22:15 10/27/24 08:37 Octreotide Acetate 500 mcg/ Sodium Chloride 100 ml @ 10 mls/hr Q10H IV 10/26/24 22:15 10/27/24 05:52 Potassium Chloride 100 ml @ 50 mls/hr Q2H IV 10/26/24 22:15 10/26/24 22:27 DC Ondansetron HCl (Zofran) 4 mg Q4HPRN PRN IV NAUSEA / VOMITING 10/27/24 04:30 Sodium Chloride 1,000 ml @ 75 mls/hr [id number] IV 10/27/24 04:45 10/27/24 05:59 Ceftriaxone Sodium 50 ml @ 100 mls/hr DAILY@09 IV 10/27/24 09:00 10/27/24 10:43 Diagnostic Test (Pha) (Accu-Chek Comfort Curve T) 1 strip Q6HR 10/27/24 12:00 Insulin Human Regular (InsuLIN R) Q6HR SC 10/27/24 12:00 Dextrose 50 ml UD PRN IV Blood Sugar LESS THAN 60 10/27/24 08:00 Vital Signs Vital Signs Date Time Temp Pulse Resp B/P (MAP) Pulse Ox O2 Delivery O2 Flow Rate FiO2 10/27/24 09:00 98.1 75 18 90/60 (70) 94 98.1 10/27/24 04:40 Room Air* 0 21 Physical Exam Well-developed well-nourished lady sleeping comfortably Pupils equal and react to light, extraocular movements intact Lungs clear, CVS S1-S2 regular rate rhythm Abdomen is soft nontender nondistended Extremities without clubbing cyanosis or edema Neuro alert oriented x3 with no focal deficit Labs/Diagnostic Data Labs Test 10/27/24 08:39 10/27/24 06:00 10/26/24 22:09 10/26/24 21:36 Range/Units White Blood Count 4.2 #L 4.4-10.8 10^3/uL Red Blood Count 2.40 L 4.0-5.20 10^6/uL Hemoglobin 7.0 *L 12.2-16.2 g/dL Hematocrit 21.1 L 36.0-46.0 % Mean Corpuscular Volume 87.7 80.0-100.0 fL Mean Corpuscular Hemoglobin 29.0 28.0-32.0 pg Mean Corpuscular Hemoglobin Concent 33.0 32.0-36.0 g/dL Red Cell Distribution Width 16.5 H 11.8-14.3 % Platelet Count 49 L 140-450 10^3/uL Mean Platelet Volume 7.4 6.9-10.8 fL Neutrophils (%) (Auto) 44.2 37.0-80.0 % Lymphocytes (%) (Auto) 46.9 10.0-50.0 % Monocytes (%) (Auto) 7.0 0.0-12.0 % Eosinophils (%) (Auto) 1.4 0.0-7.0 % Basophils (%) (Auto) 0.5 0.0-2.0 % Neutrophils # (Auto) 1.9 1.6-8.6 10 ^3/uL Lymphocytes # (Auto) 2.0 0.4-5.4 10 ^3/uL Monocytes # (Auto) 0.3 0-1.3 10 ^3/uL Eosinophils # (Auto) 0.1 0-0.8 10 ^3/uL Basophils # (Auto) 0 0-0.2 10 ^3/uL Nucleated Red Blood Cells 0.1 % Platelet Estimate Decreased Sodium Level 149 H 136-145 mmol/L Potassium Level 4.3 3.5-5.1 mmol/L Chloride Level 118 H 98-107 mmol/L Carbon Dioxide Level 20 20-31 mmol/L Anion Gap 11 5-15 Lactic Acid Level 1.3 0.4-2.0 mmol/L Calcium Level 9.0 8.7-10.4 mg/dL Influenza Type A Antigen Negative Negative Influenza Type B Antigen Negative Negative SARS-CoV-2 Antigen (Rapid) Negative NEGATIVE Lipase 31 12-53 U/L Urine Color Yellow Yellow Urine Clarity Clear Clear Urine pH 7.0 5.0-9.0 Urine Specific [place] > 1.035 H 1.001-1.035 Urine Protein Trace H Negative Urine Ketones Negative Negative Urine Blood Negative Negative /uL Urine Nitrite Negative Negative Urine Bilirubin Negative Negative Urine Urobilinogen 3 H Negative mg/dL Urine Leukocyte Esterase Negative Negative /uL Urine RBC 2 0 - 4 /hpf Urine WBC 6 0 - 5 /hpf Urine Squamous Epithelial Cells Mod <5 /hpf Urine Bacteria None seen None Seen /hpf Urine Mucus Few None Seen Urine Glucose Normal Normal mg/dL Urine Test Negative Negative Test 10/26/24 20:59 10/26/24 16:11 Range/Units Troponin I High Sensitivity 20 </=34 ng/L Prothrombin Time 13.9 H 9.3-11.8 sec Prothrombin Time INR 1.34 H 0.9-1.15 Activated Partial Thromboplast Time 26.3 24.5-34.5 SEC D-Dimer, Quantitative 0.22 0.0-0.49 mg/L FEU Total Bilirubin 1.7 H 0.2-1.0 mg/dL Aspartate Amino Transferase (AST) 22 13-40 U/L Alanine Aminotransferase (ALT) 16 7-40 U/L Alkaline Phosphatase 68 46-116 U/L B-Type Natriuretic Peptide 2.59 0-100 pg/mL Total Protein 5.3 L 5.7-8.2 g/dL Albumin 3.2 3.2-4.8 g/dL Liver USG IMPRESSION: 1. Mobile gallstones in the gallbladder. Negative ultrasound Gonzales's sign is elicited. 2. 13.9 cm liver with increased echogenicity to the hepatic parenchyma and irregular contour to the margins. HS:Y CT SCAN ABD PELVIS IMPRESSION: 1. Perisplenic, periportal, perigastric, and periesophageal varices. 2. No findings of pulmonary artery hypertension. 3. No pulmonary masses or nodules. 4. No free air or free fluid in the abdomen or pelvis. 5. Cholelithiasis and thickened gallbladder wall. 6. No findings of bowel obstruction. Problems(with codes): (1) UGI bleed (2) Elevated lactic acid level (3) Liver cirrhosis (4) Esophageal varices (5) Anemia (6) Hypokalemia (7) Cholelithiasis Plan/Recommendation Plan Clear liquid diet IV Protonix 40 mg q.12 hours Taper down octreotide drip if there was no active bleeding I am scheduling her for an endoscopy on 10/28/2024 Monitor labs Review previous endoscopy results, does not appear to be at this hospital Plan discussed with: Patient, Other (Dr. Schultz) RENNY GARRETT MD Oct 27, 2024 11:35
[2024-10-27 11:41] LABS: Blood Urea Nitrogen 26 mg/dL (9-23)
[2024-10-27] MEDS: InsuLIN REG 1unit/0.01ml Soln (100units/ml) SC SCH (12:00)
[2024-10-27] MEDS: ACCU-CHEK COMFORT CURVE STRIP VI SCH (12:20)
[2024-10-27] MEDS ORDERED: PANTOPRAZOLE 40 MG/10 ML VIAL INJ IV ONE (13:15)
[2024-10-27] MEDS: SODIUM CHLORIDE 0.9% 500 ML IV ONE (13:15)
--- NOTE | 2024-10-27 15:02 | DVHPNRES ---
Progress Note Date Seen: Oct 27, 2024 Resident Creating Document: RAVEN MONACO RESIDENT Medical Necessity Reason Pt with a Central, PICC or Fol: No Subjective Review of Systems Patient seen and examined at bedside. She is not currently complaining of any active symptoms. Last episode of hematemesis was midnight. Objective vital signs Vital Sign Date Time Temp Pulse Resp B/P (MAP) Pulse Ox O2 Delivery O2 Flow Rate FiO2 10/27/24 13:27 97.7 69 16 85/57 (66) 97 97.7 10/27/24 04:40 Room Air* 0 21 Total Intake and Output 10/26/24 10/26/24 10/27/24 15:00 23:00 07:00 Intake Total 1000 ml 650 ml Output Total 100 ml 300 ml Balance 900 ml 350 ml medications Current Medications Medications Dose Ordered Sig/Chandan Route Start Time Stop Time Status Last Admin Dose Admin Pantoprazole Sodium 50 ml @ 10 mls/hr Q5H IV 10/26/24 22:15 10/27/24 12:19 10 MLS/HR Octreotide Acetate 500 mcg/ Sodium Chloride 100 ml @ 10 mls/hr Q10H IV 10/26/24 22:15 10/27/24 12:20 10 MLS/HR Ondansetron HCl 4 mg Q4HPRN PRN IV 10/27/24 04:30 Sodium Chloride 1,000 ml @ 75 mls/hr [id number] IV 10/27/24 04:45 10/27/24 05:59 75 MLS/HR Ceftriaxone Sodium 50 ml @ 100 mls/hr DAILY@09 IV 10/27/24 09:00 10/27/24 10:43 100 MLS/HR Diagnostic Test (Pha) 1 strip Q6HR 10/27/24 12:00 10/27/24 12:20 1 STRIP Insulin Human Regular Q6HR SC 10/27/24 12:00 Dextrose 50 ml UD PRN IV 10/27/24 08:00 Pantoprazole Sodium 40 mg BID IV 10/27/24 22:00 Future Hold Examination Examination General Appearance: Alert, Oriented X3, Cooperative, No acute distress HEENT: EOMI Respiratory: Clear to auscultation, Normal air movement Cardiovascular: Regular rate, Normal S1, Normal S2 Abdominal: Normal bowel sounds Extremities: No cyanosis, No edema, Normal pulses, No tenderness/swelling Skin: No rashes, No breakdown Neuro: Normal speech and tone laboratory and microbiology Laboratory Tests 10/27/24 08:39 Test 10/27/24 08:39 Range/Units Serum Glucose 98 74-106 mg/dL Labs and/or images reviewed: Labs reviewed by me, Image(s) reviewed by me Problem List/Assessment/Plan Problem List/Assessment/Plan Assessment/plan #Upper GI bleed in setting of esophageal varices and liver cirrhosis IV Protonix b.i.d. We will discontinue octreotide drip currently no active bleeding as per GI recommendation GI consulted Plan for EGD tomorrow 1 g ceftriaxone for SBP prophylaxis #History of esophageal varices -will resume propranolol prophylaxis after EGD # hemorrhagic shock likely due to GI bleed -IV fluid bolus -ordered 1 unit of PRBC, 1 unit received earlier # severe anemia requiring blood transfusion -last hemoglobin 7.0 -ordered 1 unit of PRBC, 1 unit received earlier # Cholelithiasis, no cholecystitis -monitor # Hypokalemia -corrected #History of alcohol abuse -monitor #Moderate protein malnutrition Code status discussed greater than 22 minutes. Full code Case discussion with Dr Britt Plan discussed with: Patient, Other My Orders My Orders Orders - RAVEN MONACO RESIDENT Procedure Category Date Status Time Ceftriaxone 1gm/50ml PHA 10/27/24 In Process D5w (Rocephin) 09:00 Glucose Blood PHA 10/27/24 In Process (Accu-Chek Comfort 12:00 Insulin R (Human) PHA 10/27/24 In Process (Insulin R) 12:00 Dextrose 50% Syringe PHA 10/27/24 In Process 08:00 Pantoprazole PHA 10/27/24 In Process (Protonix) 22:00 CC Plasma Assessment Blood Product Administration S: [id number] Date of Service: Oct 27, 2024 Billing Provider: MIKA BRITT MD Common Visit Codes: [id number] INP/OBS CARE(HIGH) RAVEN MONACO Oct 27, 2024 15:02 MIKA BRITT MD Oct 28, 2024 09:05
[2024-10-27] MEDS: PANTOPRAZOLE 40 MG/10 ML VIAL INJ IV SCH (21:42)
[2024-10-27] MEDS ORDERED: PANTOPRAZOLE 40 MG/10 ML VIAL INJ IV SCH (22:00)
[2024-10-28 01:00] VITALS: BP 99/55; PULSE 93; RESP 18; TEMP 97.9; O2SAT 96
[2024-10-28 05:00] VITALS: BP 91/60; PULSE 73; RESP 18; TEMP 98.1; O2SAT 95
[2024-10-28 07:33] LABS: Potassium 3.8 mmol/L (3.5-5.1)
[2024-10-28 07:34] LABS: Anion Gap 7 (5-15); Calcium 9.2 mg/dL (8.7-10.4); Carbon Dioxide 24 mmol/L (20-31); Chloride 115 mmol/L (98-107); Sodium 146 mmol/L (136-145)
[2024-10-28 07:39] LABS: BUN/Creatinine Ratio 20.7 (10.0-20.0); Blood Urea Nitrogen 19 mg/dL (9-23); Glucose 91 mg/dL (74-106)
[2024-10-28 07:40] LABS: Magnesium 1.9 mg/dL (1.6-2.6)
[2024-10-28 07:41] LABS: Basophils # (auto) 0 10 ^3/uL (0-0.2); Hematocrit 23.5 % (36.0-46.0); Monocytes # (auto) 0.2 10 ^3/uL (0-1.3); Neutrophils # (auto) 1.6 10 ^3/uL (1.6-8.6); Nucleated Red Blood Cells % 0.1 %
[2024-10-28 07:43] LABS: Basophils % (auto) 0.5 % (0.0-2.0); Eosinophils # (auto) 0.1 10 ^3/uL (0-0.8); Eosinophils % (auto) 1.9 % (0.0-7.0); Lymphocytes % (auto) 34.9 % (10.0-50.0); Mean Corpuscular Hemoglobin 29.2 pg (28.0-32.0); Mean Corpuscular Hgb Conc. 34.2 g/dL (32.0-36.0); Mean Corpuscular Volume 85.4 fL (80.0-100.0); Monocytes % (auto) 7.4 % (0.0-12.0); Neutrophils % (auto) 55.3 % (37.0-80.0); Platelet Count (auto) 39 10^3/uL (140-450); Red Blood Cells 2.75 10^6/uL (4.0-5.20); Red Cell Distribution Width 15.9 % (11.8-14.3); White Blood Cell 2.9 10^3/uL (4.4-10.8)
[2024-10-28 08:00] VITALS: PULSE 48
[2024-10-28] MEDS ORDERED: NALOXONE HCL 0.4 MG/ML VIAL ONE (08:32)
[2024-10-28] MEDS ORDERED: FLUMAZENIL 0.1 MG/ML INJ 10ML MDV IV ONE (08:32)
[2024-10-28] MEDS ORDERED: SODIUM CHLORIDE LOCK 10 ML ONE (08:32)
[2024-10-28 09:00] VITALS: BP 99/66; PULSE 61; RESP 18; TEMP 97.7; O2SAT 92
[2024-10-28] MEDS: LIDOCAINE VISCOUS 2% 15ML UD ONE (11:25)
[2024-10-28] MEDS: MIDAZOLAM HCL 5 MG/ML-1ML VIAL ONE (11:26)
[2024-10-28] MEDS: diphenhdrAMINE HCL 50 MG/1 ML VL ONE (11:26)
[2024-10-28] MEDS: fentaNYL CITRATE 100 MCG/2 ML VL ONE (11:26)
[2024-10-28 11:41] VITALS: O2SAT 92
--- NOTE | 2024-10-28 11:46 | DVHOP2 ---
Operative Report DATE OF OPERATION: 10/28/24 PROCEDURE: Upper Endoscopy with biopsy. PREOPERATIVE INDICATION: The patient is a 49 -year-old female undergoing endoscopy for nausea vomiting upper GI bleed POSTOPERATIVE DIAGNOSES: 1. Mild gastropathy involving the cardia fundus and proximal body of the stomach 2. Slightly irregular squamocolumnar junction minimal grade a erosive esophagitis 3. Trace prominence of the distal esophageal veins without any clinical significant esophageal varices noted at this time 4. Increased oozing was noted from biopsy sites otherwise normal examination up to the 2nd and 3rd part of the duodenum with no fresh or old blood in the upper GI tract PROCEDURE PERFORMED BY: Renny Stone GI NURSE: Magy SCOPE: Olympus videoendoscope. ASA CLASS: 2 PREOPERATIVE MEDICATIONS: Versed 2 mg, Fentanyl 50 mcg, Benadryl 50 mg I administered moderate sedation throughout this _10_ minutes procedure. An independent trained observer pushed medications at my direction, and monitored the patient's level of consciousness and physiological status throughout. PROCEDURE IN DETAIL: After obtaining an informed consent, the patient was placed on left lateral decubitus position. The patient was then sedated with the above medications. A bite block was placed between her teeth. The endoscope was then passed through the oropharynx, into the esophagus, and through the stomach and pylorus up to the second and third part of the duodenum. The endoscope was then withdrawn. Second and 3rd part of the duodenal were normal in the duodenal bulb showed minimal duodenitis. Duodenal biopsies were obtained The pre-pyloric area and antrum showed minimal gastritis. On retroflexion and straight on view the patient had mild gastropathy with hyperemia erythema involving the proximal stomach Gastric biopsies were obtained. Increase oozing was noted from biopsy sites both in the duodenum and the stomach The endoscope was then withdrawn into the distal esophagus where she had a slightly irregular squamocolumnar junction minimal grade a erosive esophagitis. There were some trace prominence of the distal esophageal veins that flattened with insufflation but there were no clinically significant esophageal varices There was no fresh or old blood in the upper GI tract. The remaining distal and proximal esophagus and oropharynx were unremarkable. The patient tolerated the procedure well without difficulty. COMPLICATIONS : None SPECIMENS: Duodenal biopsies Gastric biopsies DISPOSITION: Transfer back to the floor Stable PLAN: 1. Await for biopsy result 2. Will place pt on Protonix 40 mg bid 3. Carafate 1 g p.o. twice a day 4. Resume GI soft diet advance as tolerated 5. Outpatient follow up with GI Services for ongoing medical management RENNY STONE MD Oct 28, 2024 11:46
[2024-10-28 12:58] VITALS: BP 92/45; PULSE 56; RESP 16; TEMP 97.9; O2SAT 95
[2024-10-28] MEDS ORDERED: SUCR1SUS26 PO (14:49)
[2024-10-28] MEDS ORDERED: PANT40TA2 PO (14:49)
--- NOTE | 2024-10-28 19:42 | DVHDSRES ---
Discharge Summary Date of Admission Resident Creating Document: RAVEN MONACO Oct 26, 2024 at 22:02 Date of Discharge: Oct 28, 2024 Labs/Diagnostic Data: Laboratory Results Test 10/28/24 06:57 10/27/24 12:29 10/27/24 08:39 10/27/24 06:00 White Blood Count 2.9 10^3/uL (4.4-10.8) Red Blood Count 2.75 10^6/uL (4.0-5.20) Hemoglobin 8.0 g/dL (12.2-16.2) Hematocrit 23.5 % (36.0-46.0) Mean Corpuscular Volume 85.4 fL (80.0-100.0) Mean Corpuscular Hemoglobin 29.2 pg (28.0-32.0) Mean Corpuscular Hemoglobin Concent 34.2 g/dL (32.0-36.0) Red Cell Distribution Width 15.9 % (11.8-14.3) Platelet Count 39 10^3/uL (140-450) Mean Platelet Volume 6.8 fL (6.9-10.8) Neutrophils (%) (Auto) 55.3 % (37.0-80.0) Lymphocytes (%) (Auto) 34.9 % (10.0-50.0) Monocytes (%) (Auto) 7.4 % (0.0-12.0) Eosinophils (%) (Auto) 1.9 % (0.0-7.0) Basophils (%) (Auto) 0.5 % (0.0-2.0) Neutrophils # (Auto) 1.6 10 ^3/uL (1.6-8.6) Lymphocytes # (Auto) 1.0 10 ^3/uL (0.4-5.4) Monocytes # (Auto) 0.2 10 ^3/uL (0-1.3) Eosinophils # (Auto) 0.1 10 ^3/uL (0-0.8) Basophils # (Auto) 0 10 ^3/uL (0-0.2) Nucleated Red Blood Cells 0.1 % Sodium Level 146 mmol/L (136-145) Potassium Level 3.8 mmol/L (3.5-5.1) Chloride Level 115 mmol/L (98-107) Carbon Dioxide Level 24 mmol/L (20-31) Anion Gap 7 (5-15) Blood Urea Nitrogen 19 mg/dL (9-23) Creatinine 0.92 mg/dL (0.550-1.02) Glomerular Filtration Rate Calc 77 mL/min (>90) BUN/Creatinine Ratio 20.7 (10.0-20.0) Serum Glucose 91 mg/dL (74-106) Calcium Level 9.2 mg/dL (8.7-10.4) Magnesium Level 1.9 mg/dL (1.6-2.6) POC Glucose 98 mg/dl (70-106) Platelet Estimate Decreased Lactic Acid Level 1.3 mmol/L (0.4-2.0) Influenza Type A Antigen Negative (Negative) Influenza Type B Antigen Negative (Negative) SARS-CoV-2 Antigen (Rapid) Negative (NEGATIVE) Test 10/26/24 22:09 10/26/24 21:36 10/26/24 20:59 10/26/24 16:11 Lipase 31 U/L (12-53) Tumor Marker Alpha Fetoprotein 4.5 ng/mL (0.0-6.4) Urine Color Yellow (Yellow) Urine Clarity Clear (Clear) Urine pH 7.0 (5.0-9.0) Urine Specific [place] > 1.035 (1.001-1.035) Urine Protein Trace (Negative) Urine Ketones Negative (Negative) Urine Blood Negative /uL (Negative) Urine Nitrite Negative (Negative) Urine Bilirubin Negative (Negative) Urine Urobilinogen 3 mg/dL (Negative) Urine Leukocyte Esterase Negative /uL (Negative) Urine RBC 2 /hpf (0 - 4) Urine WBC 6 /hpf (0 - 5) Urine Squamous Epithelial Cells Mod /hpf (<5) Urine Bacteria None seen /hpf (None Seen) Urine Mucus Few (None Seen) Urine Glucose Normal mg/dL (Normal) Urine Test Negative (Negative) Troponin I High Sensitivity 20 ng/L (</=34) Prothrombin Time 13.9 sec (9.3-11.8) Prothrombin Time INR 1.34 (0.9-1.15) Activated Partial Thromboplast Time 26.3 SEC (24.5-34.5) D-Dimer, Quantitative 0.22 mg/L FEU (0.0-0.49) Total Bilirubin 1.7 mg/dL (0.2-1.0) Aspartate Amino Transferase (AST) 22 U/L (13-40) Alanine Aminotransferase (ALT) 16 U/L (7-40) Alkaline Phosphatase 68 U/L (46-116) B-Type Natriuretic Peptide 2.59 pg/mL (0-100) Total Protein 5.3 g/dL (5.7-8.2) Albumin 3.2 g/dL (3.2-4.8) Other Laboratory Tests 10/28/24 06:57 Brief Hx & Hospital Course: 49-year-old female with past medical history of liver cirrhosis due to alcohol abuse, GI bleed, esophageal varices, SDH, hepatic encephalopathy seizure presented with complaints of episodes of hematemesis. Patient was initially started on Protonix drip and octreotide drip. GI was consulted. Patient was transfused with 2 units of PRBC during the hospital stay. He did not have any episode of active GI bleeding in the hospital. Patient was given IV fluids for maintenance of blood pressure. Patient was later transitioned to IV Protonix b.i.d. Patient underwent EGD revealed 1. Mild gastropathy involving the cardia fundus and proximal body of the stomach. 2. Slightly irregular squamocolumnar junction minimal grade a erosive esophagitis 3. Trace prominence of the distal esophageal veins without any clinical significant esophageal varices noted at this time 4. Increased oozing was noted from biopsy sites otherwise normal examination up to the 2nd and 3rd part of the duodenum with no fresh or old blood in the upper GI tract. At the time of discharge, patient had stable vitals, no new complaints. Discharge plan was discussed with the patient and patient was advised to follow up with PCP within one week and GI within 2-3 weeks. Patient was prescribed on Protonix 40 mg b.i.d. and sucralfate. Operations or Procedures Operative Report DATE OF OPERATION: 10/28/24 PROCEDURE: Upper Endoscopy with biopsy. PREOPERATIVE INDICATION: The patient is a 49 -year-old female undergoing endoscopy for nausea vomiting upper GI bleed POSTOPERATIVE DIAGNOSES: 1. Mild gastropathy involving the cardia fundus and proximal body of the stomach 2. Slightly irregular squamocolumnar junction minimal grade a erosive esophagitis 3. Trace prominence of the distal esophageal veins without any clinical significant esophageal varices noted at this time 4. Increased oozing was noted from biopsy sites otherwise normal examination up to the 2nd and 3rd part of the duodenum with no fresh or old blood in the upper GI tract PROCEDURE PERFORMED BY: Renny Stone GI NURSE: Magy SCOPE: Olympus videoendoscope. ASA CLASS: 2 PREOPERATIVE MEDICATIONS: Versed 2 mg, Fentanyl 50 mcg, Benadryl 50 mg I administered moderate sedation throughout this _10_ minutes procedure. An independent trained observer pushed medications at my direction, and monitored the patient's level of consciousness and physiological status throughout. PROCEDURE IN DETAIL: After obtaining an informed consent, the patient was placed on left lateral decubitus position. The patient was then sedated with the above medications. A bite block was placed between her teeth. The endoscope was then passed through the oropharynx, into the esophagus, and through the stomach and pylorus up to the second and third part of the duodenum. The endoscope was then withdrawn. Second and 3rd part of the duodenal were normal in the duodenal bulb showed minimal duodenitis. Duodenal biopsies were obtained The pre-pyloric area and antrum showed minimal gastritis. On retroflexion and straight on view the patient had mild gastropathy with hyperemia erythema involving the proximal stomach Gastric biopsies were obtained. Increase oozing was noted from biopsy sites both in the duodenum and the stomach The endoscope was then withdrawn into the distal esophagus where she had a slightly irregular squamocolumnar junction minimal grade a erosive esophagitis. There were some trace prominence of the distal esophageal veins that flattened with insufflation but there were no clinically significant esophageal varices There was no fresh or old blood in the upper GI tract. The remaining distal and proximal esophagus and oropharynx were unremarkable. The patient tolerated the procedure well without difficulty. COMPLICATIONS : None SPECIMENS: Duodenal biopsies Gastric biopsies DISPOSITION: Transfer back to the floor Stable PLAN: 1. Await for biopsy result 2. Will place pt on Protonix 40 mg bid 3. Carafate 1 g p.o. twice a day 4. Resume GI soft diet advance as tolerated 5. Outpatient follow up with GI Services for ongoing medical management RENNY STONE MD Condition at Discharge: Stable Final Diagnosis/Problems List # Upper GI bleed in setting of esophageal varices and liver cirrhosis. # History of esophageal varices. # hemorrhagic shock likely due to GI bleed. # severe anemia requiring blood transfusion. # Cholelithiasis, no cholecystitis. # Hypokalemia. # History of alcohol abuse. # Moderate protein malnutrition. Discharge Disposition: Home Discharge Instruct/Medications Diet: Regular Activity: No Restrictions, As Tolerated Follow Up/Referral: f/u with PCP igor 1 week f/u with GI within 1-2 weeks Medications: script sent to pharmacy Discharge Statement: "Patient was advised to return to the ER or call 911 if any headaches, dizziness, shortness of breath, chest pain, abdominal pain, bleeding, fevers, or worsening of medical condition. Patient was counseled about treatment plan, medications, possible side effects, patientverbalized understanding. All questions were answered to the best of my ability. This discharge took greater then 30 minutes in planning, reviewing documentation, counseling the patient, and discussing with other team members." ASSESSMENT ASSESSMENT Assessment gi bleed, upper Date of Service: Oct 28, 2024 Billing Provider: MIKA BRITT MD Common Visit Codes: 70204-YLX/OBS DISCH DAY >30min RAVEN MONACO RESIDENT Oct 28, 2024 19:42 MIKA BRITT MD Oct 31, 2024 08:44
[2024-10-28] MEDS ORDERED: SUCRALFATE 1 GM/10 ML ORAL SUSP PO SCH (22:00)
== END 2024-10-28 17:00 | disposition home or self-care (01) | DRG 280 ==
LOC: ER 15:43 → TELE 22:02 → TELE-EAST 10-27 04:33
PROVIDERS: ADMIT Student in an Organized Health Care Education/Training Program; ATTEND Student in an Organized Health Care Education/Training Program
PROC: 30233N1 Transfusion of Nonautologous Red Blood Cells into Peripheral Vein, Percutaneous Approach (ICD-10-PCS; principal; 2024-10-27)
PROC: 0DB98ZX Excision of Duodenum, Via Natural or Artificial Opening Endoscopic, Diagnostic (ICD-10-PCS; 2024-10-28)
PROC: 0DB68ZX Excision of Stomach, Via Natural or Artificial Opening Endoscopic, Diagnostic (ICD-10-PCS; 2024-10-28)
DX: K70.30 Alcoholic cirrhosis of liver without ascites (principal); R57.8 Other shock; I85.11 Secondary esophageal varices with bleeding; E44.0 Moderate protein-calorie malnutrition; E87.20 Acidosis, unspecified; K22.10 Ulcer of esophagus without bleeding; K80.20 Calculus of gallbladder without cholecystitis without obstruction; E87.6 Hypokalemia; D50.0 Iron deficiency anemia secondary to blood loss (chronic); K31.9 Disease of stomach and duodenum, unspecified; K29.70 Gastritis, unspecified, without bleeding; K29.80 Duodenitis without bleeding; Z68.25 Body mass index [BMI] 25.0-25.9, adult; Z80.1 Family history of malignant neoplasm of trachea, bronchus and lung
CPT/HCPCS: 36415; 43239; 71260; 74177; 76705; 80048; 80053; 81001; 81025; 82105; 82962; 83605; 83690; 83735; 83880; 84484; 85025; 85379; 85610; 85730; 86850; 86900; 86901; 86920; 87426; 87804; 93005; 96365; 96375; G0378; J2250; J2405; J2470; J3480; P9047